=== PATIENT | male | born 1960 | race Caucasian/White ===

== ENCOUNTER 2017-04-22 23:15 | Emergency (ER) | payer OTHER ==
[~2017-04-22] VITALS: Ht 185.4 cm; Wt 115.0 kg
[2017-04-22 23:22] VITALS: BP 164/96; PULSE 96; RESP 18; TEMP 98.4; O2SAT 97
[2017-04-22] MEDS ORDERED: METF500T PO (23:29)
[2017-04-22] MEDS ORDERED: AMLO5TAB2 PO (23:29)
[2017-04-22] MEDS ORDERED: LOSA25TA PO (23:29)
[2017-04-22] MEDS ORDERED: PERC5TAB12 PO (23:29)
[2017-04-22] MEDS ORDERED: JANU50TA8 PO (23:29)
[2017-04-22] MEDS ORDERED: PROZ40CA PO (23:35)
[2017-04-23] MEDS ORDERED: KETOROLAC TROMETHAMINE 60 MG/2 ML (IM) VIAL IM ONE (00:45)
--- NOTE | 2017-04-23 00:45 | PD ---
HPI Chief Complaint: Headache Time Seen by Provider: 00:33 Travel History International Travel<30 days: No Contact w/Intl Traveler<30days: No Traveled to known affect area: No History of Present Illness HPI The patient is a 57-year-old male that complains of a gradual onset bifrontal headache today. It got worse throughout the day and is a 10 over 10. He has had this headache before, his last episode was 8 months ago. He denies any fever. The headache is getting slightly better now and is an 8/10, it is an aching type of pain. He denies any ear pain, dental pain, TMJ pain or neck pain or neck stiffness. He denies any fever. He does have some slight photophobia and he did have some slight nausea without vomiting. PFSH Past Medical History Diabetes: Yes Patient Takes Glucophage: Yes Hypertension: Yes Tetanus Vaccination: Unknown Influenza Vaccination: Yes Past Surgical History Other Surgery: Yes (lesion removal on back) Social History Alcohol Use: No Tobacco Use: No Substance Use: No Allergies-Medications (Allergen,Severity, Reaction): Coded Allergies: Penicillins (Verified Allergy, Severe, Nausea/Vomiting, 04/22/17) Reported Meds & Prescriptions Reported Meds & Active Scripts Active Percocet (Oxycodone-Acetaminophen) 5-325 mg Tab 1 Tab PO Q4H PRN Prochlorperazine Maleate 10 Mg Tab 10 Mg PO Q6H PRN Ibuprofen 800 Mg Tab 800 Mg PO TID Reported Prozac (Fluoxetine HCl) 40 Mg Cap 40 Mg PO DAILY Percocet (Oxycodone-Acetaminophen) 5-325 mg Tab 1 Tab PO Q6H PRN Metformin (Metformin HCl) 500 Mg Tab 500 Mg PO DAILY With a meal Janumet (Sitagliptin-Metformin) 50-1,000 Mg Tab 1 Tab PO BID Amlodipine (Amlodipine Besylate) 5 Mg Tab 5 Mg PO DAILY Losartan (Losartan Potassium) 25 Mg Tab 25 Mg PO DAILY Review of Systems Except as stated in HPI: all other systems reviewed are Neg Physical Exam Narrative GENERAL: Well-nourished, well-developed patient in moderate apparent distress with his headache. His vital signs show pulse of 96 and blood pressure 164/96 but are otherwise normal. SKIN: Focused skin assessment warm/dry. HEAD: Normocephalic. EYES: No scleral icterus. No injection or drainage. NECK: Supple, trachea midline. No JVD or lymphadenopathy. There is no meningismus and the patient flexes neck fully without any hesitation so that the chin touches the chest. CARDIOVASCULAR: Regular rate and rhythm without murmurs, gallops, or rubs. RESPIRATORY: Breath sounds equal bilaterally. No accessory muscle use. GASTROINTESTINAL: Abdomen soft, non-tender, nondistended. MUSCULOSKELETAL: No cyanosis, or edema. BACK: Nontender without obvious deformity. No CVA tenderness. ENT: No sinus tenderness is present. Data Data Last Documented VS Vital Signs Date Time Temp Pulse Resp B/P (MAP) Pulse Ox O2 Delivery O2 Flow Rate FiO2 04/23/17 01:27 90 20 149/88 (108) 96 04/22/17 23:22 98.4 Orders Orders Ketorolac Inj (Toradol Inj) (04/23/17 00:45) Prochlorperazine Maleate (Compazine) (04/23/17 01:00) [facility] Medical Decision Making Medical Screen Exam Complete: Yes Emergency Medical Condition: Yes Medical Record Reviewed: Yes Differential Diagnosis Migraine headache, tension headache, tension/migraine combination headache, cluster headache, intracranial bleed-highly unlikely Narrative Course The patient has a recurrent headache etiology undetermined. He has components that are similar to migraine headache. Is now 0137 and the patient feels much better and wants to go home. Plan: He is getting prescriptions for ibuprofen, Compazine and I refilled his Percocet prescription. He knows not to drink alcohol or drive on the Percocet. Additional Instructions: As you already know, do not drink alcohol or drive on the Percocet. It is difficult few to find time to sleep at this is what may help you most. We get back to [place], follow-up with her primary care physician. Scripts Oxycodone-Acetaminophen (Percocet) 5-325 mg Tab 1 TAB PO Q4H Y for PAIN, #20 TAB 0 Refills Prov: Nickolas Contreras MD 04/23/17 Prochlorperazine Maleate (Prochlorperazine Maleate) 10 Mg Tab 10 MG PO Q6H Y for NAUSEA OR VOMITING, #30 TAB 0 Refills Prov: Nickolas Contreras MD 04/23/17 Ibuprofen (Ibuprofen) 800 Mg Tab 800 MG PO TID, #33 TAB 0 Refills Prov: Nickolas Contreras MD 04/23/17 Disposition: 01 DISCHARGE HOME Condition: Stable Nickolas Contreras MD Apr 23, 2017 00:45
[2017-04-23] MEDS ORDERED: PERC5TAB12 PO (00:50)
[2017-04-23] MEDS ORDERED: IBUP800T23 PO (00:50)
[2017-04-23] MEDS ORDERED: PROC10TA PO (00:50)
[2017-04-23] MEDS ORDERED: PROCHLORPERAZINE MALEATE 10 MG TAB PO ONE (01:00)
[2017-04-23 01:27] VITALS: BP 149/88; PULSE 90; RESP 20; O2SAT 96
== END 2017-04-23 02:05 | disposition home or self-care (01) ==
LOC: PHED 23:15
DX: R51 Headache (principal); H53.149 Visual discomfort, unspecified; E11.9 Type 2 diabetes mellitus without complications; I10 Essential (primary) hypertension; Z79.84 Long term (current) use of oral hypoglycemic drugs
CPT/HCPCS: 96372; 99284; J1885; Q0164

== ENCOUNTER 2017-07-14 06:21 | Emergency (ER) | payer OTHER ==
[~2017-07-14] VITALS: Ht 182.9 cm; Wt 116.0 kg
[~2017-07-14 06:21] MED LIST: AMLO5TAB2 PO; IBUP1TAB7 PO; JANU50TA8 PO; LOSA25TA PO; METF500T PO; PERC5TAB12 PO; PROC10TA PO; PROZ40CA PO
[2017-07-14 06:25] VITALS: BP 163/99; PULSE 98; RESP 18; TEMP 97.9; O2SAT 96
--- NOTE | 2017-07-14 07:04 | PD ---
HPI Chief Complaint: Headache Time Seen by Provider: 06:55 Travel History International Travel<30 days: No Contact w/Intl Traveler<30days: No Traveled to known affect area: No History of Present Illness HPI This is a 57 year old male who presents to the emergency department with headache in the frontal area, constant, moderate severity that going on for 2 days, with no associated nausea, vomiting, numbness or weakness. He's had headaches like this before. He is traveling from [place] and is out of his Percocet prescription for his neuropathy as well as his diabetes medications. He says he doesn't travel well and traveling often precipitates a headache. PFSH Past Medical History Arthritis: Yes Diabetes: Yes Patient Takes Glucophage: Yes Hypertension: Yes Tetanus Vaccination: < 5 Years Influenza Vaccination: Yes Past Surgical History Other Surgery: Yes (lesion removal on back) Social History Alcohol Use: No Tobacco Use: No Substance Use: No Allergies-Medications (Allergen,Severity, Reaction): Coded Allergies: Penicillins (Verified Allergy, Severe, Nausea/Vomiting, 07/14/17) Reported Meds & Prescriptions Reported Meds & Active Scripts Active Reported Prozac (Fluoxetine HCl) 40 Mg Cap 40 Mg PO DAILY Percocet (Oxycodone-Acetaminophen) 5-325 mg Tab 1 Tab PO Q6H PRN Metformin (Metformin HCl) 500 Mg Tab 500 Mg PO DAILY With a meal Janumet (Sitagliptin-Metformin) 50-1,000 Mg Tab 1 Tab PO BID Amlodipine (Amlodipine Besylate) 5 Mg Tab 5 Mg PO DAILY Losartan (Losartan Potassium) 25 Mg Tab 25 Mg PO DAILY Review of Systems Except as stated in HPI: all other systems reviewed are Neg Physical Exam Narrative GENERAL:Well appearing, no acute distress SKIN: Focused skin assessment warm and dry. HEAD: Atraumatic. Normocephalic. EYES: Pupils equal and round. No injection or drainage. ENT: Moist mucous membranes NECK: Trachea midline. CARDIOVASCULAR: Regular rate and rhythm. No murmur appreciated. RESPIRATORY: Clear to auscultation. Breath sounds equal bilaterally. GASTROINTESTINAL: Abdomen soft, non-tender, nondistended. MUSCULOSKELETAL: No obvious deformities. NEUROLOGICAL: Awake and alert. No obvious cranial nerve deficits. No dysarthria or aphasia. No upper or lower extremity drift. No upper extremity ataxia. PSYCHIATRIC: Appropriate mood and affect; insight and judgment normal. Data Data Last Documented VS Vital Signs Date Time Temp Pulse Resp B/P (MAP) Pulse Ox O2 Delivery O2 Flow Rate FiO2 07/14/17 06:25 97.9 98 18 163/99 (120) 96 Orders Orders Ketorolac Inj (Toradol Inj) (07/14/17 07:15) Prochlorperazine Inj (Compazine Inj) (07/14/17 07:15) Sodium Chlor 0.9% 1000 Ml Inj (Ns 1000 M (07/14/17 07:15) Diphenhydramine Inj (Benadryl Inj) (07/14/17 07:15) MDM Medical Decision Making Medical Screen Exam Complete: Yes Emergency Medical Condition: Yes Differential Diagnosis Migraine headache, tension headache, opiate withdrawal headache, subarachnoid hemorrhage Narrative Course This is a 57-year-old male who presents to the emergency department with a headache that's been going on for 2 days. He says he ran out of his Percocet and he was requesting a refill. He has a normal neurologic exam. He had headaches in the past and this is similar so I don't suspect subarachnoid hemorrhage don't think there is any indication for imaging. I informed him we can't refill controlled substances for chronic pain in the emergency department. He was given Toradol, Benadryl and Compazine with IV fluids. He says he feels better on reassessment. Patient will be discharged. Diagnosis Primary Impression: Headache Qualified Codes: R51 - Headache Patient Instructions: General Instructions Additional Instructions: If you develop severe worsening headache, persistent vomiting, numbness, weakness, difficulty walking or difficulty talking return to the emergency department immediately. Sometimes in the emergency department we did not identify the cause of headaches. If you continued to have headaches it is very important that you followup with your primary care physician as you may need further testing with an MRI. Med/Other Pt SpecificInfo: No Change to Meds Disposition: 01 DISCHARGE HOME Condition: Stable Kate Godinez MD Jul 14, 2017 07:04
[2017-07-14] MEDS ORDERED: KETOROLAC TROMETHAMINE 30 MG/ML (IVP) VIAL IV PUSH ONE (07:15)
[2017-07-14] MEDS ORDERED: PROCHLORPERAZINE INJ 10 MG/2 ML VIAL IV PUSH ONE (07:15)
[2017-07-14] MEDS ORDERED: diphenhydrAMINE HCL 50 MG/ML VIAL IV PUSH ONE (07:15)
[2017-07-14] MEDS ORDERED: SODIUM CHLOR 0.9% 1000 ML INJ 1,000 ML IV ONE (07:15)
[2017-07-14 08:09] VITALS: BP 145/77
[2017-07-14 08:14] VITALS: RESP 18
== END 2017-07-14 08:14 | disposition home or self-care (01) ==
LOC: PHED 06:21
DX: R51 Headache (principal); E11.9 Type 2 diabetes mellitus without complications; I10 Essential (primary) hypertension; Z79.84 Long term (current) use of oral hypoglycemic drugs
CPT/HCPCS: 96361; 96374; 96375; 99284; J0780; J1200; J1885; J7030